=== PATIENT | female | born 1970 | race Caucasian/White ===

== ENCOUNTER 2019-09-22 07:52 | Emergency (ER) | payer BC ==
[2019-09-22] MEDS ORDERED: traMADol 50 MG Tab ONE (08:50)
--- NOTE | 2019-09-22 11:23 | ER ---
REASON FOR VISIT: Left ankle injury. HISTORY: This 49-year-old woman with insulin-dependent diabetes slipped on the ice last evening and suffered what she felt was an ankle sprain involving her left ankle. She thinks she inverted her left foot while she slipped on the ice and fell. She suffered no other injuries. She noticed increased pain with attempts on weightbearing. PAST MEDICAL HISTORY: Insulin-dependent diabetes (pump). MEDICATIONS: Duloxetine, alprazolam, and insulin. ALLERGIES: TO LATEX AND PHENTERMINE. REVIEW OF SYSTEMS: Otherwise, unremarkable. PHYSICAL EXAMINATION: VITAL SIGNS: She is afebrile. Heart rate is 80, blood pressure 137/56, respirations 16, O2 saturations 98%. EXTREMITIES: Examination of the left ankle reveals some swelling about the ankle and distally overlying the fifth metatarsal. She has no ecchymosis. Distal sensation and capillary refill are normal. She has no bony crepitus. DIAGNOSTIC DATA: X-ray shows that she has a transverse fracture with no significant displacement involving the junction of the shaft and the metaphysis of the proximal 5th metatarsal. IMPRESSION: Fifth metatarsal fracture. PLAN: She will be placed in a rigid boot as a splint and instructed to ice it. She should keep it elevated and was instructed to be on nonweightbearing until she is seen in the clinic in 1 week's time in followup. She was given tramadol 50 mg, dispensed #10, 1 q.6 hours p.r.n. pain. She was urged to be judicious in the use of this and informed that this is in fact a narcotic. Otherwise, she should stick to Tylenol and avoid NSAIDs. All questions were answered. She understands and agrees with this plan. FREDERIC /[id number]
--- NOTE | 2019-09-22 19:38 | CR ---
DATE OF SERVICE: 09/22/2019 CLINICAL DATA: Pain. LEFT ANKLE: There is a nondisplaced transverse fracture through the proximal fifth metatarsal. No other acute abnormalities. There are osteoarthritic changes involving multiple joints. There is a posterior calcaneal spur. IMPRESSION: Fracture 5th metatarsal. [id number] [facility]
== END 2019-09-22 10:10 | disposition home or self-care (01) ==
LOC: LB.ED 07:52
DX: S92.352A Displaced fracture of fifth metatarsal bone, left foot, initial encounter for closed fracture (principal); E11.9 Type 2 diabetes mellitus without complications; Z88.8 Allergy status to other drugs, medicaments and biological substances; Z91.040 Latex allergy status; W00.0XXA Fall on same level due to ice and snow, initial encounter
CPT/HCPCS: 73610-LT; 99283-25; A9270-GY

== ENCOUNTER 2022-04-14 08:02 | Day surgery (SDC) | payer BC ==
[~2022-04-14 08:02] MED LIST: Metoclopramide 10 MG/2 ML SDV IV PRN; Sodium Chloride 0.9% 1,000 ML IV SCH
== END 2022-04-14 11:35 | disposition home or self-care (01) ==
LOC: LB.SDS 08:02
PROVIDERS: ATTEND Surgery
DX: Z12.11 Encounter for screening for malignant neoplasm of colon (principal); F17.200 Nicotine dependence, unspecified, uncomplicated; E11.9 Type 2 diabetes mellitus without complications; J44.9 Chronic obstructive pulmonary disease, unspecified
CPT/HCPCS: 82947; J2704; J7030